=== PATIENT | male | born 1945 | race Caucasian/White ===

== ENCOUNTER 2017-09-25 08:56 | Day surgery (SDC) | payer OTHER, BC ==
[~2017-09-25 08:56] MED LIST: VERSED ONE
[2017-09-25] MEDS ORDERED: NS 500 ML IV 500 ML IV ONE (09:16)
[2017-09-25] MEDS ORDERED: TETRACAINE 0.5% OPHTH 1 DOSE AFFEYE ONE ×7 (09:18→12:13)
[2017-09-25] MEDS ORDERED: VIGAMOX 0.5% OPHTH 1 DOSE AFFEYE ONE ×4 (09:20→12:27)
[2017-09-25] MEDS ORDERED: BROMDAY OPHTH 1 DOSE AFFEYE ONE (09:31)
[2017-09-25] MEDS ORDERED: ALPHAGAN-P OPHTH 1 DOSE AFFEYE ONE (09:32)
[2017-09-25] MEDS ORDERED: MYDRIACIL OPHTH 1 DOSE AFFEYE ONE ×4 (09:35→09:38)
[2017-09-25] MEDS ORDERED: AK-DILATE 2.5% OPHTH 1 DOSE OP ONE ×4 (09:35→09:38)
[2017-09-25] MEDS ORDERED: CYCLOGYL 1% OPHTH 1 DOSE OP ONE ×4 (09:35→09:38)
[2017-09-25] MEDS ORDERED: AK-DILATE 10% OPHTH 1 DOSE AFFEYE ONE ×3 (11:39→11:49)
[2017-09-25] MEDS ORDERED: ADRENALINE CHL INJ IJ ONE ×2 (12:03→12:13)
[2017-09-25] MEDS ORDERED: BETADINE OPHTH SOLN 5% EACHEYE ONE (12:03)
[2017-09-25] MEDS ORDERED: DUOVISC IO ONE ×2 (12:03→12:13)
[2017-09-25] MEDS ORDERED: XYLOCAINE-MPF 1% IJ ONE ×2 (12:03→12:13)
[2017-09-25] MEDS ORDERED: BSS OPHTH (PLAIN) 500 ML with VANCOMYCIN HCL 500 MG VIAL 25 MG, ADRENALINE CHL INJ 1 MG IR ONE ×6 (12:08)
[2017-09-25 14:05] VITALS: BP 152/81
== END 2017-09-25 12:50 | disposition home or self-care (01) ==
LOC: EDBD → SURG1 08:56
PROVIDERS: ATTEND Ophthalmology
PROC: 08DK3ZZ Extraction of Left Lens, Percutaneous Approach (ICD-10-PCS; principal; 2017-09-25 14:15)
PROC: 08RK3JZ Replacement of Left Lens with Synthetic Substitute, Percutaneous Approach (ICD-10-PCS; principal; 2017-09-25 14:15)
DX: H25.12 Age-related nuclear cataract, left eye (principal); H25.012 Cortical age-related cataract, left eye; H52.222 Regular astigmatism, left eye
CPT/HCPCS: 99100; V2797; A4217; J0170; J2250; J3370

== ENCOUNTER 2017-10-23 06:48 | Day surgery (SDC) | payer OTHER, BC ==
[2017-10-23] MEDS: TETRACAINE 0.5% OPHTH 1 DOSE AFFEYE ONE ×2 (07:15→11:03)
[2017-10-23] MEDS ORDERED: VIGAMOX 0.5% OPHTH 1 DOSE AFFEYE ONE ×6 (07:16→11:41)
[2017-10-23] MEDS ORDERED: PROLENSA OPHTH 1 DOSE AFFEYE ONE (07:27)
[2017-10-23] MEDS ORDERED: ALPHAGAN-P OPHTH 1 DOSE AFFEYE ONE (07:28)
[2017-10-23] MEDS ORDERED: CYCLOGYL 1% OPHTH 1 DOSE OP ONE ×3 (07:29→07:35)
[2017-10-23] MEDS ORDERED: AK-DILATE 2.5% OPHTH 1 DOSE OP ONE ×3 (07:30→07:36)
[2017-10-23] MEDS ORDERED: MYDRIACIL OPHTH 1 DOSE AFFEYE ONE ×3 (07:31→07:37)
[2017-10-23] MEDS ORDERED: NS 500 ML IV 500 ML IV ONE (07:37)
[2017-10-23] MEDS ORDERED: TETRACAINE 0.5% OPHTH 1 DOSE AFFEYE ONE ×3 (10:33→11:18)
[2017-10-23] MEDS: VERSED ONE ×2 (10:49→11:03)
[2017-10-23] MEDS ORDERED: BETADINE OPHTH SOLN 5% EACHEYE ONE (11:15)
[2017-10-23] MEDS ORDERED: ADRENALINE CHL INJ IJ ONE (11:18)
[2017-10-23] MEDS ORDERED: XYLOCAINE-MPF 1% IJ ONE (11:18)
[2017-10-23] MEDS ORDERED: BSS OPHTH (PLAIN) 500 ML with VANCOMYCIN HCL 500 MG VIAL 25 MG, ADRENALINE CHL INJ 1 MG IR ONE ×6 (11:19)
[2017-10-23] MEDS ORDERED: DUOVISC IO ONE (11:19)
[2017-10-23 14:15] VITALS: BP 118/74
== END 2017-10-23 12:05 | disposition home or self-care (01) ==
LOC: SURG1 06:48
PROVIDERS: ATTEND Ophthalmology
PROC: 08RJ3JZ Replacement of Right Lens with Synthetic Substitute, Percutaneous Approach (ICD-10-PCS; principal; 2017-10-23 09:15)
PROC: 08DJ3ZZ Extraction of Right Lens, Percutaneous Approach (ICD-10-PCS; principal; 2017-10-23 09:15)
DX: H25.11 Age-related nuclear cataract, right eye (principal); H52.221 Regular astigmatism, right eye
CPT/HCPCS: 99100; V2797; A4217; J0170; J2250; J3370